=== PATIENT | female | born 1990 | race Caucasian/White ===

== ENCOUNTER 2021-02-06 03:15 | Emergency (ER) | payer OTHER ==
[~2021-02-06] VITALS: Ht 162.6 cm; Wt 59.0 kg
[2021-02-06 03:21] VITALS: BP 112/57
--- NOTE | 2021-02-06 03:26 | NUR ---
TO LOBBY TO A/W EVALUATION
[2021-02-06] MEDS ORDERED: ATA25 PO (04:19)
--- NOTE | 2021-02-06 04:35 | NUR ---
PT UP FOR DISCHARGE, PT UNABLE TO BE FOUND IN LOBBY OR OUTSIDE. PT LEFT WITHOUT DISCHARGE INSTRUCTIONS.
== END 2021-02-06 04:35 | disposition home or self-care (01) ==
LOC: MED 03:15
DX: R00.2 Palpitations (principal); F41.1 Generalized anxiety disorder; Z88.8 Allergy status to other drugs, medicaments and biological substances
CPT/HCPCS: 93005; 99283

== ENCOUNTER 2021-02-08 09:40 | Emergency (ER) | payer OTHER ==
[~2021-02-08 09:40] MED LIST: ATA25 PO
--- NOTE | 2021-02-08 10:00 | NUR ---
CALLED X 1 . NO SHOW.PATIENT LEFT WITHOUT BEING TRIAGED. NO FURTHER CARE PROVIDED FOR PATIENT.
== END 2021-02-08 10:00 | disposition left against medical advice (07) ==
LOC: MED 09:40
DX: Z53.21 Procedure and treatment not carried out due to patient leaving prior to being seen by health care provider (principal)